=== PATIENT | female | born 1955 | race Caucasian/White ===

== ENCOUNTER 2024-11-27 10:44 | Emergency (ER) | payer MEDICARE ==
[~2024-11-27] VITALS: Ht 162.6 cm; Wt 92.0 kg
[2024-11-27] VITALS (10 sets, daily range): BP systolic 101–130; BP diastolic 63–99
[2024-11-27] MEDS ORDERED: cefTRIAXone SODIUM 2 GM in SODIUM CHLORIDE 0.9% 100 ML IV ONE (11:10)
[2024-11-27] MEDS ORDERED: AZITHROMYCIN 500 MG in SODIUM CHLORIDE 0.9% 500 ML IV ONE (11:10)
[2024-11-27 11:21] LABS: BASO% 0.7 % (0-3); HEMATOCRIT 45.7 % (37.0-47.0); HEMOGLOBIN 12.8 g/dl (12.0-16.0); IMMATURE GRANULOCYTES 0.2 % (0.0-5.0); LYMPH% 3.5 % (15-41); MEAN CELL VOLUME 81.2 fL CALC (80.0-100.0); MEAN CORPUSCULAR HGB 22.7 pG CALC (26.0-32.0); MONO% 8.5 % (2-13); NEUT# 7.92 thou/uL (2.00-7.15); NEUT% 87.1 % (42-76); RED BLOOD COUNT 5.63 mill/uL (4.20-5.60)
[2024-11-27 11:40] LABS: ALBUMIN 4.1 g/dL (3.2-5.0); BILIRUBIN, TOTAL 3.5 mg/dL (0.02-1.3); CREATININE 1.6 mg/dL (0.5-1.0); POTASSIUM 4.5 mmol/l (3.5-5.1); TOTAL PROTEIN 8.5 g/dL (6.3-8.2)
[2024-11-27] MEDS ORDERED: methylPREDNISolone SODIUM SUCC 125 MG/2 ML SDV IV ONE (12:00)
[2024-11-27] MEDS ORDERED: IPRATROPIUM-Albuterol 0.5MG-2.5MG/3 ML NEB ONE ×2 (12:00)
[2024-11-27] MEDS ORDERED: ENOXAPARIN SODIUM 100 MG/ML SYR SC ONE (12:05)
[2024-11-27] MEDS ORDERED: ASPIRIN 81 MG/TAB PO ONE (12:05)
[2024-11-27] MEDS ORDERED: FUROSEMIDE 40 MG/4 ML SDV IV ONE ×2 (14:15→14:20)
[2024-11-27] MEDS ORDERED: VENTOLIN HFA108 MCG PO (15:12)
[2024-11-27] MEDS ORDERED: PREDNISONE50 MG PO (15:12)
[2024-11-27] MEDS ORDERED: LASIX 40 MG TAB40 MG PO (15:12)
[2024-11-27] MEDS ORDERED: AMOX/K CLAV875 M1 PO (15:12)
[2024-11-27] MEDS ORDERED: ZPAK PO (15:12)
== END 2024-11-27 15:11 | disposition left against medical advice (07) ==
LOC: ED 10:44
PROVIDERS: Family Medicine
PROC: 5A09357 Assistance with Respiratory Ventilation, Less than 24 Consecutive Hours, Continuous Positive Airway Pressure (ICD-10-PCS; principal; 2024-11-27)
DX: I21.4 Non-ST elevation (NSTEMI) myocardial infarction (principal); J18.9 Pneumonia, unspecified organism; J44.0 Chronic obstructive pulmonary disease with (acute) lower respiratory infection; J44.1 Chronic obstructive pulmonary disease with (acute) exacerbation; I11.0 Hypertensive heart disease with heart failure; I50.9 Heart failure, unspecified; Z20.822 Contact with and (suspected) exposure to COVID-19; Z53.29 Procedure and treatment not carried out because of patient's decision for other reasons
CPT/HCPCS: J0456; J0696; J1650; J1940